=== PATIENT | female | born 1980 | race Caucasian/White ===

== ENCOUNTER → 2019-01-01 | Outpatient (CLI) | payer OTHER ==
[~2019-01-01] MED LIST: BACTRIM DS 8001 TAB PO; CEPHALEXIN500 M1 PO; DYNAPEN 250MG250 MG PO; NO HOME MEDICATIONS; NORCO 325 MG-51 TAB PO; PREDNISONE20 MG PO
== END ==
LOC: SUN.DIA 12:44
DX: E11.9 Type 2 diabetes mellitus without complications (principal); F17.210 Nicotine dependence, cigarettes, uncomplicated
CPT/HCPCS: G0108

== ENCOUNTER → 2019-01-10 | Outpatient (CLI) | payer OTHER | LOC: SUN.DIA 09:00 → DIA.ED 09:01 → SUN.DIA 11:02 | DX: E11.40 Type 2 diabetes mellitus with diabetic neuropathy, unspecified (principal) | CPT/HCPCS: G0108 ==

== ENCOUNTER → 2019-01-24 | Outpatient (CLI) | payer OTHER | LOC: SUN.DIA 14:09 | DX: E11.40 Type 2 diabetes mellitus with diabetic neuropathy, unspecified (principal); F17.210 Nicotine dependence, cigarettes, uncomplicated | CPT/HCPCS: G0109 ==

== ENCOUNTER → 2019-01-31 | Outpatient (CLI) | payer OTHER | LOC: SUN.DIA 13:51 | DX: E11.9 Type 2 diabetes mellitus without complications (principal); E11.40 Type 2 diabetes mellitus with diabetic neuropathy, unspecified | CPT/HCPCS: G0109 ==

== ENCOUNTER → 2019-02-07 | Outpatient (CLI) | payer OTHER | LOC: SUN.DIA 15:48 | DX: E11.9 Type 2 diabetes mellitus without complications (principal); E11.40 Type 2 diabetes mellitus with diabetic neuropathy, unspecified | CPT/HCPCS: G0109 ==

== ENCOUNTER → 2019-02-14 | Outpatient (CLI) | payer OTHER | LOC: SUN.DIA 14:33 | DX: E11.40 Type 2 diabetes mellitus with diabetic neuropathy, unspecified (principal) | CPT/HCPCS: G0109 ==

== ENCOUNTER → 2019-02-21 | Outpatient (CLI) | payer OTHER | LOC: SUN.DIA 08:39 | DX: E11.40 Type 2 diabetes mellitus with diabetic neuropathy, unspecified (principal) | CPT/HCPCS: G0108 ==

== ENCOUNTER → 2019-04-03 | Outpatient (CLI) | payer OTHER | LOC: DIA.ED 08:44 → LIGHT 15:40 → SUN.DIA 15:41 | DX: E11.9 Type 2 diabetes mellitus without complications (principal); E11.40 Type 2 diabetes mellitus with diabetic neuropathy, unspecified | CPT/HCPCS: G0108 ==

== ENCOUNTER 2020-09-10 21:00 | Emergency (ER) | payer OTHER ==
[~2020-09-10] VITALS: Ht 167.6 cm; Wt 79.5 kg
[2020-09-10 21:11] VITALS: TEMP 98.2
[2020-09-10] MEDS ORDERED: CEPHALEXIN500 M1 PO (21:40)
[2020-09-10 22:00] VITALS: BP 172/98; PULSE 109
== END 2020-09-10 22:00 | disposition home or self-care (01) ==
LOC: COL.ER 21:00
DX: S01.112A Laceration without foreign body of left eyelid and periocular area, initial encounter (principal); F17.210 Nicotine dependence, cigarettes, uncomplicated; Z88.2 Allergy status to sulfonamides; Z79.52 Long term (current) use of systemic steroids; W54.1XXA Struck by dog, initial encounter

== ENCOUNTER → 2021-05-19 | Outpatient (CLI) | payer OTHER ==
[~2021-05-19] MED LIST changes: +GLUCOPHAGE1000 MG PO; +LIPITOR20 MG PO; +MOTRIN 600600 MG/TAB PO; +TRICOR145 MG PO
== END ==
LOC: MC.RAD 09:44
DX: Z12.31 Encounter for screening mammogram for malignant neoplasm of breast (principal); N63.20 Unspecified lump in the left breast, unspecified quadrant

== ENCOUNTER → 2021-05-26 | Outpatient (CLI) | payer OTHER | LOC: MC.RAD 09:45 | DX: N63.20 Unspecified lump in the left breast, unspecified quadrant (principal) ==

== ENCOUNTER → 2021-06-22 | Outpatient (CLI) | payer OTHER | LOC: MC.RAD 12:49 | DX: N63.20 Unspecified lump in the left breast, unspecified quadrant (principal) ==

== ENCOUNTER 2021-06-23 06:26 | Day surgery (SDC) | payer OTHER ==
[~2021-06-23] VITALS: Ht 167.6 cm; Wt 77.8 kg
[~2021-06-23 06:26] MED LIST changes: -GLUCOPHAGE1000 MG PO; -LIPITOR20 MG PO; -MOTRIN 600600 MG/TAB PO; -TRICOR145 MG PO
[2021-06-23 06:50] VITALS: BP 141/93; PULSE 98; TEMP 97.9
[2021-06-23] MEDS ORDERED: TRICOR145 MG PO (06:55)
[2021-06-23] MEDS ORDERED: LIPITOR20 MG PO (06:55)
[2021-06-23] MEDS ORDERED: GLUCOPHAGE1000 MG PO (06:56)
[2021-06-23 10:05] VITALS: BP 131/84; PULSE 98; TEMP 97.7
[2021-06-23 10:20] VITALS: BP 135/78; PULSE 98
[2021-06-23] MEDS ORDERED: MOTRIN 600600 MG/TAB PO (10:26)
[2021-06-23] MEDS ORDERED: NORCO 325 MG-51 TAB PO (10:26)
[2021-06-23 10:35] VITALS: BP 131/86; PULSE 100
[2021-06-23 10:50] VITALS: BP 120/72; PULSE 86
--- NOTE | 2021-06-23 11:00 | NUR ---
1005: Patient arrived back in [facility] from [place]. Report recieved from [employer] and [employer]ES [employer] MARKETING DIRECTOR. Patient's mother at bedside. Patient reports doing well, no nausea/vomiting or pain. Patient requesting blueberry muffin and sprite. 1020: Patient ate blueberry muffin and drank sprite, tolerated well. Requesting water at this time. No complaint of pain or nausea. 1035: Patient went to restroom, got dressed independently. No complaint of pain or nausea. Mother at bedside. 1050: Went through discharge instructions with patient and patient's mother. Questions answered. Verbalized understanding to education. IV removed without complications.
== END 2021-06-23 10:55 | disposition home or self-care (01) ==
LOC: SDCO 06:26
DX: D49.3 Neoplasm of unspecified behavior of breast (principal); N63.20 Unspecified lump in the left breast, unspecified quadrant; E11.9 Type 2 diabetes mellitus without complications; E78.5 Hyperlipidemia, unspecified; E78.1 Pure hyperglyceridemia; F17.210 Nicotine dependence, cigarettes, uncomplicated; Z82.49 Family history of ischemic heart disease and other diseases of the circulatory system; Z20.822 Contact with and (suspected) exposure to COVID-19; Z79.84 Long term (current) use of oral hypoglycemic drugs; Z79.899 Other long term (current) drug therapy; Z80.41 Family history of malignant neoplasm of ovary
CPT/HCPCS: A4648; J0690; J2250; J2704; J7120

== ENCOUNTER → 2022-05-25 | Outpatient (CLI) | payer OTHER ==
[~2022-05-25] MED LIST changes: +GLUCOPHAGE1000 MG PO; +LIPITOR20 MG PO; +MOTRIN 600600 MG/TAB PO; +TRICOR145 MG PO
== END ==
LOC: MC.RAD 10:16
DX: Z12.31 Encounter for screening mammogram for malignant neoplasm of breast (principal); R10.32 Left lower quadrant pain

== ENCOUNTER → 2022-07-30 | Outpatient (CLI) | payer OTHER | LOC: COL.RAD 10:58 | DX: Q67.8 Other congenital deformities of chest (principal); M89.319 Hypertrophy of bone, unspecified shoulder; M94.0 Chondrocostal junction syndrome [Tietze] ==

== ENCOUNTER → 2023-09-05 | Outpatient (CLI) | payer OTHER | LOC: MC.RAD 11:12 | DX: Z12.31 Encounter for screening mammogram for malignant neoplasm of breast (principal) ==